=== PATIENT | male | born 1995 | race Caucasian/White ===

== ENCOUNTER 2019-07-26 13:33 | Emergency (ER) | payer SELFPAY ==
[2019-07-26 13:34] VITALS: BP 153/83; PULSE 105; RESP 16; TEMP 36.2; O2SAT 98; BMI 25.5
--- NOTE | 2019-07-26 13:50 | EKG12_ITS ---
Test Reason : Blood Pressure : / mmHG Vent. Rate : 092 BPM Atrial Rate : 092 BPM P-R Int : 136 ms QRS Dur : 106 ms QT Int : 338 ms P-R-T Axes : 069 078 048 degrees QTc Int : 417 ms Normal sinus rhythm Normal ECG Confirmed by JUAN MONSIVAIS, CARLTON ([id number]), movie editor KINGSTON FERNANDEZ ([id number]) on 07/28/2019 8:00:31 AM Referred By: KEILY Confirmed By:CARLTON MARTINEZ MD
[2019-07-26] MEDS: 0.9% Normal Saline 1,000 ML 1000 ML IV (13:59)
[2019-07-26 14:07] LABS: Absolute Lymphocyte Count 1.75 X10^3/uL (0.83-4.51); Absolute Neutrophil Count 7.4 X10^3/uL (2.0-7.7); Basophil# 0.05 X10^3/uL; Basophil% 0.5 % (0-1); Eosinophil# 0.25 X10^3/uL; Eosinophils% 2.4 % (0-5); Hematocrit 42.5 % (40-54); Hemoglobin 14.2 g/dL (13.0-16.5); Lymphocyte # 1.75 X10^3/ul (4.0); Lymphocyte % 16.7 % (19-41); Mean Corp Hgb Conc 33.4 g/dL (32-36); Mean Corpuscular Hgb 29.6 pg (27.0-32.0); Mean Corpuscular Volume 88.7 fL (80-94); Mean Platelet Vol. 10.3 fl (6.2-12.0); Monocyte# 1.01 X10^3/uL; Monocyte% 9.6 % (0-10); NRBC Flagged by Analyzer 0 % (0-5); Neutrophil # 7.41 X10^3/uL (2.7-7.7); Neutrophil % 70.5 % (47-70); Platelet Count 211 K/mm3 (150-450); RBC Distribution Width CV 13.5 % (11.6-14.6); Red Blood Count 4.79 M/mm3 (4.6-6.2); White Blood Count 10.5 K/mm3 (4.4-11.0)
[2019-07-26 14:25] LABS: Anion Gap 4 (5-15); BUN 28 mg/dL (7-18); Calcium,Total 9.2 mg/dL (8.5-10.1); Chloride 105 mmol/L (98-107); Creatinine, Serum 1.27 mg/dL (0.70-1.30); EST Glomerular Filtration Rate 73 mL/min (>60); Est Glom Filt Rate - Afr Amer 89 mL/min (>60); Estimated Creatinine Clearance 91.81 ml/min; Glucose 130 mg/dL (74-106); Sodium Level 137 mmol/L (136-145)
--- NOTE | 2019-07-26 14:42 | RAD_ITS ---
STUDY: X-RAY CHEST REASON FOR EXAM: Male, 24 years old. SOB, RAPID HEART RATE TECHNIQUE: Single AP portable view of the chest. COMPARISON: None. FINDINGS: The lungs are clear and expanded. There is no demonstrated pleural abnormality. Normal size heart. Normal mediastinum and jose de jesus. Normal visualized pulmonary arteries. Normal visualized aortic arch and descending thoracic aorta. Normal visualized thoracic spine. Normal visualized ribs, clavicles, and shoulders. There is no demonstrated abnormality of the visualized soft tissue structures of the upper abdomen. RAD/Chest 1 View (Portable) IMPRESSION: Normal x-ray examination of the chest. Electronically Signed: Jesse Paris DO at 15:21 EST Tel , Service support ,
--- NOTE | 2019-07-26 14:58 | ED.VISSUMM ---
- ER Visit Summary Date of Service: 07/26/19 Chief Complaint: Fatigue History of Present Illness: The patient is a 24 M with no primary care physician. Patient reports that he has felt more tired than usual over the past 3 days. He also states that his heart rate is higher than it typically is. States is also had lightheadedness. He denies any chest pain. Reports that he has had mild shortness of breath at times. However, he went and worked out today did not have any shortness of breath while he was exercising. Patient denies personal family history of DVT. No recent travel. No ankle swelling or calf pain. Review of systems is otherwise negative. Physical Examination: Vitals: Stable. Afebrile. General: Well-nourished and well-developed. Head: Normocephalic atraumatic. Neck: Supple, no lymphadenopathy. No JVD. Nontender. Cardiovascular: Regular rate and rhythm. No murmurs. Respiratory: No respiratory distress. Clear to auscultation bilaterally. Abdominal: Soft, nontender, nondistended, normal bowel sounds. No guarding, rebound, or peritoneal signs. Back: Nontender. Extremities: Nontender, no edema. Skin: Normal color, no rash. Neurologic: Alert and oriented ?3. Cranial nerves II through XII are intact. Normal strength and sensation. Psych: Normal affect. Test Results: EKG is sinus at [address] changes that are consistent with benign early repolarization. Opponent is negative. Chem-7 is more for glucose 130 and BUN of 28. CBC is marked for 70-71 lymphocytes 17. Clinical Impression(s) from Imaging Studies Chest X-Ray 07/26/19 14:42 IMPRESSION: Normal x-ray examination of the chest. Electronically Signed: Jesse Paris DO at 15:21 EST Tel , Service support , Emergency Department Course and Treatment: Patient was given a liter of normal saline. He is resting comfortably. His heart rate is decreased into the low 90s. Treatment Plan: Patient will be discharged with instructions to push fluids. Follow-up with Dr. Blackwell in 3 to 5 days if not improving. Return to the emergency department for any worsening symptoms. Disposition: To home in improved and stable condition. Impression: 1. Dehydration. This note was generated with [employer] dictation software. It may contain incorrect words, spelling, and punctuation that were not noted in review of the chart prior to signing ED Disposition - Plan for ED Patient: Disposition: Home or Assisted Living Instructions: DEHYDRATION (5y-Adult) Referrals: Malathi Blackwell DO [STAFF PHYSICIAN] - 3-5 Days if not improving
[2019-07-26 15:04] VITALS: BP 117/77; PULSE 93; RESP 16; O2SAT 98
== END 2019-07-26 15:16 | disposition home or self-care (01) ==
PROVIDERS: Emergency Provider Emergency Medicine
DX: E86.0 Dehydration (principal)
CPT/HCPCS: 71045; 80048; 84484; 85025; 93005; 96360; 99284; J7030; A4216

== ENCOUNTER 2022-11-23 07:48 | Emergency (ER) | payer SELFPAY ==
[2022-11-23 07:49] VITALS: BP 127/75; PULSE 65; RESP 14; TEMP 36.6; O2SAT 100; BMI 29.7
--- NOTE | 2022-11-23 08:05 | US_ITS ---
STUDY: SCROTUM ULTRASOUND REASON FOR EXAM: Male, 27 years old. Pain, swelling left TECHNIQUE: Ultrasound evaluation of the scrotum was performed with color Doppler and static rodas-scale imaging. COMPARISON: None. FINDINGS: RIGHT TESTICLE INTRATESTICULAR: There is a normal size of the right testicle. The right testicle measures 3.9 cm x 2.5 cm x 2.1 cm. There is a homogenous echotexture. There is normal arterial and normal venous vascularity. There is no demonstrated right testicular mass or cyst. EXTRATESTICULAR: The epididymis is normal in size. The epididymis head measures 0.7 cm x 1.1 cm x 1.1 cm. There is increased (hyperemic) vascularity of the epididymis. There is no demonstrated epididymal cystic structure. There is no demonstrated hydrocele. There is no demonstrated varicocele. There is no demonstrated extratesticular mass or cyst. LEFT TESTICLE INTRATESTICULAR: There is a normal size of the left testicle. The left testicle measures 3.6 cm x 2.3 cm x 2.2 cm. There is a homogenous echotexture. There is normal arterial and normal venous vascularity. There is no demonstrated left testicular mass or cyst. EXTRATESTICULAR: The epididymis is normal in size. The epididymis head measures 0.9 cm x 1.2 cm x 1.4 cm. There is increased (hyperemic) vascularity of the epididymis. There is no demonstrated epididymal cystic structure. There is no demonstrated hydrocele. There is no demonstrated varicocele. There is no demonstrated extratesticular mass or cyst. US/Testicular with Arterial Flow IMPRESSION: Mild enlargement of the head of the epididymis. Increase blood flow to both epididymis. Electronically Signed: Dwain Bojorquez MD at 9:49 EDT ,
--- NOTE | 2022-11-23 08:06 | EDS_ITS ---
HPI History of Present Illness Chief Complaint: Male Pain/Injury Informant: patient Narrative Narrative: 4-5 days of gradual onset left testicular pain and swelling. States initially he was having intercourse with his significant other noticed decreased semen pro duction, and then after his testicle was painful and swollen he noticed that semen was a little brown almost like there was a small amount of blood mixed in with it. He has had no urinary symptoms, abdominal pain, fevers, chills, or other systemic symptoms. PFSH PFSH Home Medications doxycycline monohydrate 100 mg capsule 100 mg PO BID #14 CAPSULES 11/23/22 [Rx Last Taken Unknown] Allergy/AdvReac Type Severity Reaction Status Date / Time No Known Allergies Allergy Verified 11/23/22 07:49 Social History Smoking Status: Never smoker ROS ROS ED Constitutional Constitutional ED: Denies chills or fever(s) Gastrointestinal Gastrointestinal: Denies abdominal pain, nausea or vomiting Genitourinary Genitourinary ED: Reports as per HPI, scrotal pain and scrotal swelling; Denies dysuria, hematuria or urinary frequency EXAM Physical Exam Const Vital Signs: 11/23/22 07:49 Temperature 98 F Temperature Source Temporal Pulse Rate 65 Respiratory Rate 14 Blood Pressure 127/75 H Blood Pressure Mean 92 Pulse Ox 100 Oxygen Delivery Method Room Air MDM MDM MDM Narrative Medical decision making narrative: Consistent with epididymitis, however he is fairly swollen in his left hemiscrotum and I ordered an ultrasound mainly to evaluate for involvement of his testicle, I reviewed the images and the interpretation which I agree with, basically consistent with left epididymitis and no signs of orchitis. I sent a GC and chlamydia although he is monogamous and neither one of them have a known history of GC or chlamydia so I think it is more likely just standard bacterial infection such as E. coli so placing him on doxycycline but the GC and Chlamydia are sent and pending. Prior to discharge, patient's chlamydia came back positive and his gonorrhea is negative. Advised to advise partner to seek treatment. Radiography Diagnostic Testing: Clinical Impression(s) from Imaging Studies Testicular Ultrasound 11/23/22 08:05 IMPRESSION: Mild enlargement of the head of the epididymis. Increase blood flow to both epididymis. Electronically Signed: Dwain Bojorquez MD at 9:49 EDT , Discharge Plan Triage Chief Complaint: Male Pain/Injury ED Provider: Alexis Grissom Dx/Rx/DC Orders Clinical Impression: Epididymitis, left, Chlamydial epididymitis Instructions: Chlamydia, ED Epididymitis Prescriptions: New doxycycline monohydrate 100 mg capsule 100 mg PO BID Qty: 14 0RF Primary Care Provider: Care Physician,No Primary Referrals: Abhay Wu MD [Med Staff - Active Staff] - 1 Week if not improving Care Physician,No Primary [Primary Care Provider] - Disposition Disposition: Home, Self Care
[2022-11-23 10:16] LABS: Chlamydia Trachomatis by PCR POSITIVE (Negative); Neisserai gonorrhoeae by PCR Negative (Negative); Probe Check PASS; Sample Adequacy Control PASS; Specimen Processing Control PASS
[2022-11-23 10:28] VITALS: RESP 16
== END 2022-11-23 10:29 | disposition home or self-care (01) ==
PROVIDERS: Emergency Provider Emergency Medicine; Visit Provider Emergency Medicine
DX: N45.1 Epididymitis (principal); N50.812 Left testicular pain; N50.89 Other specified disorders of the male genital organs
CPT/HCPCS: 76870; 87491; 87591; 93976; 99282